=== PATIENT | male | born 1950 | race Caucasian/White ===

== ENCOUNTER 2020-02-21 10:16 | Emergency (ER) | payer OTHER ==
[~2020-02-21] VITALS: Ht 188 cm; Wt 100.0 kg
[2020-02-21] MEDS ORDERED: SODIUM CHLORIDE 0.9% 1,000ML IVBOLUS ONE (10:30)
[2020-02-21] MEDS ORDERED: THIAMINE 100MG TABLET PO ONE (10:30)
[2020-02-21] MEDS ORDERED: SODIUM CHLORIDE FLUSH 10ML SYR IVF ONE (10:30)
[2020-02-21] MEDS ORDERED: ONDANSETRON 2MG/ML, 2ML IVPush ONE (10:30)
[2020-02-21] MEDS ORDERED: THIAMINE 100MG TABLET ONE (10:34)
[2020-02-21] MEDS ORDERED: LORazepam 2 MG/ML, 1ML ONE ×2 (10:34→13:40)
[2020-02-21] MEDS ORDERED: ONDANSETRON 2MG/ML, 2ML ONE (10:34)
[2020-02-21 10:47] LABS: BASOPHILS # (AUTO) 0.01 x10^3/uL (0-0.1); BASOPHILS % (AUTO) 0 % (0-1); EOSINOPHILS # (AUTO) 0.03 x10^3/uL (0-0.4); EOSINOPHILS % (AUTO) 1 % (1-7); LYMPHOCYTES # (AUTO) 1.28 x10^3/uL (1-3.4); LYMPHOCYTES % (AUTO) 24 % (22-44); MD NO; MEAN CORPUSCULAR HEMOGLOBIN 32.2 pg (27.5-34.5); MEAN CORPUSCULAR HGB CONC 33.5 g/dL (33.2-36.2); MEAN CORPUSCULAR VOLUME 96.2 fL (81-97); MEAN PLATELET VOLUME 7.8 fL (7.4-10.4); MONOCYTES # (AUTO) 0.48 x10^3/uL (0.2-0.8); MONOCYTES % (AUTO) 9 % (2-9); NEUTROPHILS # (AUTO) 3.59 x10^3/uL (1.8-6.8); NEUTROPHILS % (AUTO) 67 % (42-75); PLATELET COUNT 192 x10^3/uL (130-400); RED BLOOD COUNT 5.06 x10^6/uL (4.38-5.82); RED CELL DISTRIBUTION WIDTH 15.9 % (9.4-14.8)
[2020-02-21] MEDS: LORazepam 2 MG/ML, 1ML IVPush PRN ×2 (10:53→13:42)
[2020-02-21 10:55] LABS: ALANINE AMINOTRANSFERASE 110 U/L (12-78); ALBUMIN 3.8 g/dL (3.4-5.0); ANION GAP 15 mmol/L (5-15); CALCIUM 9.8 mg/dL (8.5-10.1); CHLORIDE 96 mmol/L (98-107); CREATININE 1.12 mg/dL (0.7-1.3)
[2020-02-21 10:57] LABS: ALKALINE PHOSPHATASE 85 U/L (45-117); BILIRUBIN,TOTAL 0.9 mg/dL (0.2-1.0); TOTAL PROTEIN 7.5 g/dL (6.4-8.2)
[2020-02-21 11:17] VITALS: BP 160/92
[2020-02-21 12:53] LABS: MICROSCOPIC AUTO
[2020-02-21 13:06] LABS: CULTURE INDICATED? NO
== END 2020-02-21 11:54 | disposition home or self-care (01) ==
LOC: ED 11:08
DX: K29.20 Alcoholic gastritis without bleeding (principal); F10.239 Alcohol dependence with withdrawal, unspecified; R45.1 Restlessness and agitation; R74.8 Abnormal levels of other serum enzymes; R11.10 Vomiting, unspecified; I44.7 Left bundle-branch block, unspecified; Y90.0 Blood alcohol level of less than 20 mg/100 ml
CPT/HCPCS: 36415; 74022; 80053; 81001; 83605; 83690; 85025; 93005; 96361; 96374; 96375; 96376; 99285; J2060; J2405; J7030